=== PATIENT | female | born 1955 | race Caucasian/White ===

== ENCOUNTER 2020-02-16 18:19 | Emergency (ER) | payer MEDICARE, BC ==
[~2020-02-16] VITALS: Ht 167.6 cm; Wt 69.5 kg
--- NOTE | 2020-02-16 19:14 | PHYS DOC ---
Past History Past Medical History: Arthritis, Diabetes, Hypertension (ANNA HICKS APRN) Past Surgical History: , Knee Replacement, Other Additional Past Surgical Histo: right shoulder. rigth foot. thyroid (ANNA HICKS APRN) Alcohol Use: None (ANNA HICKS APRN) Adult General Chief Complaint Chief Complaint: SKIN PROBLEM HPI HPI Patient is a 59-year-old female patient presents with bilateral leg swelling starting last night. Patient reports she normally does not get any swelling in her legs, however since last night she has noticed some swelling to her bilateral legs. States she has not really had this in the past, states last night she put her legs up and they seem to have some improved swelling. 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 Patient denies any worsening dyspnea, denies any cough. Denies any weight change. She does report the swelling got so tight in her lower extremities that eventually caused a split in the skin of her right ankle. States she does have a history of hypertension and diabetes, reports her diabetes is well managed with her Metformin. Denies any change in her urination, denies any back pain. Also reports she notes a little bit of a rash to her lower extremities today. States she has not been taking any medications for the swelling or for the rash other than taking a Benadryl last night which did not seem to improve her rash (ANNA HICKS APRN) Review of Systems Review of Systems Constitutional: Denies fever or chills [] Eyes: Denies change in visual acuity, redness, or eye pain [] HENT: Denies nasal congestion or sore throat [] Respiratory: Denies cough or shortness of breath [] Cardiovascular: No additional information not addressed in HPI [] GI: Denies abdominal pain, nausea, vomiting, bloody stools or diarrhea [] : Denies dysuria or hematuria [] Musculoskeletal: Denies back pain or joint pain does report increased swelling to her bilateral lower legs [] Integument: Reports rash in her ankles, reports skin swelling to left posterior heel that has split upon last night due to the swelling in her feet [] Neurologic: Denies headache, focal weakness or sensory changes [] Endocrine: Denies polyuria or polydipsia [] All other systems were reviewed and found to be within normal limits, except as documented in this note. (ANNA HICKS APRN) Allergies Allergies Allergies Coded Allergies Type Severity Reaction Last Updated Verified iodine Allergy Unknown 02/16/20 Yes latex Allergy Unknown 02/16/20 Yes lisinopril Allergy Unknown 02/16/20 Yes (ANNA HICKS APRN) Physical Exam Physical Exam Constitutional: Well developed, well nourished, no acute distress, non-toxic appearance. [] HENT: Normocephalic, atraumatic, bilateral external ears normal, oropharynx moist, no oral exudates, nose normal. [] Eyes: PERRLA, EOMI, conjunctiva normal, no discharge. [] Neck: Normal range of motion, no tenderness, supple, no stridor. [] Cardiovascular:Heart rate regular rhythm, no murmur [] Lungs & Thorax: Bilateral breath sounds clear to auscultation [] Abdomen: Bowel sounds normal, soft, no tenderness, no masses, no pulsatile masses. [] Skin: Warm, dry, no erythema, widespread distal rash to distal tib-fib bilaterally, with minimal erythema, no vesicles, no pustules, stopping at sock line. [] Back: No tenderness, no CVA tenderness. [] Extremities: No tenderness, no cyanosis, no clubbing, ROM intact, mild edema noted to mid calf distally, with 1+ pitting edema to right ankle, moderate swelling to bilateral feet. Noted surgical scars to bilateral knees, reportedly replaced September/ May 2019. [] Neurologic: Alert and oriented X 3, normal motor function, normal sensory function, no focal deficits noted. [] Psychologic: Affect normal, judgement normal, mood normal. [] (ANNA HICKS APRN) Current Patient Data Vital Signs Vital Signs Date Time Temp Pulse Resp B/P (MAP) Pulse Ox O2 Delivery O2 Flow Rate FiO2 02/16/20 18:44 97.8 84 16 166/104 (124) 98 Room Air (ANNA HICKS APRN) EKG EKG normal sinus rhythm with no ST changes. per Dr Patrick @2023[] (ANNA HICKS APRN) Radiology/Procedures Radiology/Procedures []PROCEDURE: CHEST AP ONLY EXAM: CHEST AP ONLY INDICATION: Reason: edema / Spl. Instructions: / History: . TECHNIQUE: Single view COMPARISON: None FINDINGS: The heart size is normal. The great vessels appear unremarkable. There is no hilar or mediastinal mass. The lungs are clear. There is no pleural effusion or pneumothorax. There are no significant osseous abnormalities. Right shoulder arthroplasty is incidentally noted. IMPRESSION: No active cardiopulmonary disease. Electronically signed by: Reymundo Ryan MD (02/16/2020 8:11 PM) [facility] [place] DICTATED AND SIGNED BY: REYMUNDO RYAN MD DATE: 02/16/202010 (ANNA HICKS APRN) Heart Score HEART Score for Chest Pain: HEART Score for Chest Pain Response (Comments) Value History Slighlty/Non-Suspicious 0 ECG Normal 0 Age < 45 0 Risk Factors 1 or 2 Risk Factors 1 Troponin < Normal Limit 0 Total 1 Risk Factors: Risk Factors: DM, Current or recent (<one month) smoker, HTN, HLP, family history of CAD, obesity. Risk Scores: Risk Factors: DM, Current or recent (<one month) smoker, HTN, HLP, family history of CAD, obesity. (ANNA HICKS APRN) Course & Med Decision Making Course & Med Decision Making Pertinent Labs and Imaging studies reviewed. (See chart for details) [] Discussed findings with patient, with minimally elevated BNP, but no additional findings. Discussed use of compression stockings, discussed use of short course of diuretics. Patient agreed with this plan. Discussed follow-up with patient with consideration for cardiology consult for echo as needed with primary care. Patient agreed with this plan with no further questions or concerns (ANNA HICKS APRN) Dragon Disclaimer Dragon Disclaimer This electronic medical record was generated, in whole or in part, using a voice recognition dictation system. (ANNA HICKS APRN) Departure Departure: Impression: Primary Impression: Edema Additional Impression: Contact dermatitis Disposition: 01 DC HOME SELF CARE/HOMELESS Condition: GOOD Referrals: TROY TOM MD (PCP) Patient Instructions: Contact Dermatitis, Peripheral Edema Additional Instructions: As we discussed, you may consider an khpa-aeg-vfhnymy steroid cream for your legs where the rash is. You should take the water pills once a day for the next couple days to help reduce the swelling. Remember to keep your legs elevated as much as possible. Follow-up with your primary care provider in the next week or two to reevaluate your swelling. Scripts Furosemide (FUROSEMIDE) 20 Mg Tablet 1 TAB PO DAILY for swelling, #4 TAB 1 Refill Prov: ANNA HICKS APRN 02/16/20 Attending Signature Attending Signature I have reviewed the PA/WINDOWS SYSTEMS ENGINEER's note and plan of care. I was available for consultation as needed during the patient's visit in the emergency department. I agree with the clinical impression, plan, and disposition. (DONTAE PATRICK DO) Problem Qualifiers Primary Impression: Edema Edema type: localized Qualified Codes: R60.0 - Localized edema Additional Impression: Contact dermatitis Contact dermatitis type: irritant Contact dermatitis trigger: unspecified trigger Qualified Codes: L24.9 - Irritant contact dermatitis, unspecified cause ANNA HICKS APRN Feb 16, 2020 19:14 DONTAE PATRICK DO Feb 16, 2020 22:04
[2020-02-16 19:41] LABS: BASO # 0.1 x10^3/uL (0.0-0.2); BASO % 1 % (0-3); EOS # 0.1 x10^3/uL (0.0-0.7); EOS % 2 % (0-3); HEMATOCRIT 33.7 % (36.0-47.0); HEMOGLOBIN 10.4 g/dL (12.0-15.5); LYMPH # 2.3 x10^3/uL (1.0-4.8); LYMPH % 33 % (24-48); MEAN CORPUSCULAR HEMOGLOBIN 25 pg (25-35); MEAN CORPUSCULAR HGB CONC 31 g/dL (31-37); MEAN CORPUSCULAR VOLUME 81 fL (79-100); MONO # 0.6 x10^3/uL (0.0-1.1); MONO % 8 % (0-9); NEUT # 4.1 x10^3uL (1.8-7.7); NEUT % 57 % (31-73); PLATELET COUNT 386 x10^3/uL (140-400); RED BLOOD COUNT 4.15 x10^6/uL (3.50-5.40); RED CELL DISTRIBUTION WIDTH 17.9 % (11.5-14.5); WHITE BLOOD COUNT 7.2 x10^3/uL (4.0-11.0)
[2020-02-16 19:44] LABS: CALCIUM 9.4 mg/dL (8.5-10.1); GFR 55.6; POTASSIUM 3.9 mmol/L (3.5-5.1)
[2020-02-16 19:56] LABS: ALBUMIN 3.5 g/dL (3.4-5.0); TOTAL BILIRUBIN 0.8 mg/dL (0.2-1.0); TOTAL PROTEIN 7.1 g/dL (6.4-8.2)
--- NOTE | 2020-02-16 20:14 | RAD ---
EXAM: CHEST AP ONLY INDICATION: Reason: edema / Spl. Instructions: / History: . TECHNIQUE: Single view COMPARISON: None FINDINGS: The heart size is normal. The great vessels appear unremarkable. There is no hilar or mediastinal mass. The lungs are clear. There is no pleural effusion or pneumothorax. There are no significant osseous abnormalities. Right shoulder arthroplasty is incidentally noted. IMPRESSION: No active cardiopulmonary disease. Electronically signed by: Dwayne Ryan MD (02/16/2020 8:11 PM) [facility] [place]
[2020-02-16 20:29] VITALS: BP 165/87
[2020-02-16] MEDS ORDERED: FURO20TA3 PO (20:38)
[2020-02-16 20:45] LABS: BILIRUBIN,URINE NEG (NEG); CLARITY,URINE CLEAR; COLOR,URINE YELLOW; GLUCOSE,URINE NEG (NEG)
[2020-02-16 20:46] LABS: BACTERIA,URINE 0 /HPF (0-FEW); NITRITE,URINE NEG (NEG); RBC,URINE 0 /HPF (0-2); SQUAMOUS EPITHELIAL CELL,UR FEW /LPF; UROBILINOGEN,URINE 0.2 mg/dL (0.2 mg/dL)
--- NOTE | 2020-02-17 18:24 | EKG ---
[address] [address] Test Date: 2020-02-16 Test Time: 20:08:45 Pat Name: YVONNE SHOEMAKER Department: Room: Gender: F Purchasing Internship: ENEDINA : 1955 Requested By: ANNA HICKS Order Number: [id number] Reading MD: Prashant Shannon Measurements Intervals [place] Rate: 76 P: 32 [place]: 160 QRS: -2 QRSD: 70 T: 9 QT: 372 QTc: 418 Interpretive Statements SINUS RHYTHM LEFTWARD AXIS Electronically Signed On 02-17-2020 18:24:10 DEHYDROGENATION OPERATOR by Prashant Shannon
== END 2020-02-16 20:40 | disposition home or self-care (01) ==
LOC: ER 18:19
DX: L25.9 Unspecified contact dermatitis, unspecified cause (principal); R60.0 Localized edema; R21 Rash and other nonspecific skin eruption; M19.90 Unspecified osteoarthritis, unspecified site; E11.9 Type 2 diabetes mellitus without complications; I10 Essential (primary) hypertension; Z98.890 Other specified postprocedural states; Z91.040 Latex allergy status; Z91.041 Radiographic dye allergy status; Z88.8 Allergy status to other drugs, medicaments and biological substances
CPT/HCPCS: 36415; 71045; 80053; 81001; 83880; 84484; 85025; 87086; 93005; 99285

== ENCOUNTER 2021-01-03 16:09 | Emergency (ER) | payer MEDICARE, BC ==
[~2021-01-03] VITALS: Ht 167.6 cm; Wt 69.5 kg
[~2021-01-03 16:09] MED LIST: FURO20TA3 PO
--- NOTE | 2021-01-03 16:39 | PHYS DOC ---
Past History Past Medical History: Arthritis, Diabetes, Hypertension (LORI OLSON APRN) Past Surgical History: , Knee Replacement, Other Additional Past Surgical Histo: right shoulder. rigth foot. thyroid (LORI OLSON APRN) Alcohol Use: None (LORI OLSON APRN) General Adult EDM: Chief Complaint: FLANK PAIN HPI: HPI: Patient is a 65-year-old female who presents with left lower abdominal pain and flank pain that started an hour ago. Patient also reports nausea and vomiting. Afebrile. Denies frequency or dysuria denies chest pain or shortness of breath. Denies taking anything for pain. History of arthritis, hypertension, diabetes. (LORI OLSON APRN) Review of Systems: Review of Systems: ROS At least 10 ROS systems have been reviewed and are negative except as documented in the HPI. General: Negative except as outlined in HPI above. Skin: Negative except as outlined in HPI above. HEENT: Negative except as outlined in HPI above. Neck: Negative except as outlined in HPI above. Respiratory: Negative except as outlined in HPI above.. Cardiovascular: Negative except as outlined in HPI above. Abdomen: Negative except as outlined in HPI above. : Negative except as outlined in HPI above. Back/MSK: Negative except as outlined in HPI above. Neuro: Negative except as outlined in HPI above. Psych: Negative except as outlined in HPI above. (LORI OLSON APRN) Allergies: Allergies: Allergies Coded Allergies Type Severity Reaction Last Updated Verified iodine Allergy Unknown 02/16/20 Yes latex Allergy Unknown 02/16/20 Yes lisinopril Allergy Unknown 02/16/20 Yes (LORI OLSON APRN) Physical Exam: PE: Constitutional: Well developed, well nourished, no acute distress, non-toxic appearance. [] HENT: Normocephalic, atraumatic, bilateral external ears normal, oropharynx moist, no oral exudates, nose normal. [] Eyes: PERRLA, EOMI, conjunctiva normal, no discharge. [] Neck: Normal range of motion, no tenderness, supple, no stridor. [] Cardiovascular:Heart rate regular rhythm, no murmur [] Lungs & Thorax: Bilateral breath sounds clear to auscultation [] Abdomen: Bowel sounds normal, soft, left lower tenderness Skin: Warm, dry, no erythema, no rash. [] Back: No tenderness, left CVA tenderness. [] Extremities: No tenderness, no cyanosis, no clubbing, ROM intact, no edema. [] Neurologic: Alert and oriented X 3, normal motor function, normal sensory function, no focal deficits noted. [] Psychologic: Affect normal, judgement normal, mood normal. [] (LORI OLSON APRN) EKG: EKG: [] (LORI OLSON APRN) Radiology/Procedures: Radiology/Procedures: []CT ABDOMEN+PELVIS WO History: Left lower side abdominal pain, left flank pain. Comparison: None. Technique: CT of the abdomen and pelvis without contrast. Findings: There is a 6 mm solid pulmonary nodule right lower lobe (axial 11) and partially imaged at least 4 mm nodule in the right lower lobe (axial image 1). Visualized heart is unremarkable. No pleural or pericardial effusion. The liver, gallbladder, pancreas, spleen, and adrenal glands are unremarkable. There is bilateral nephrolithiasis. Right lower pole stone measures 4 mm. No right hydronephrosis. Mild left hydronephrosis with 5 mm proximal left ureteral stone. Multiple additional small left nephroliths. The bladder is decompressed and unremarkable. Normal uterus and adnexa. Small hiatal hernia. Unremarkable stomach and small bowel. There is moderate colonic diverticulosis without wall thickening or pericolonic stranding to suggest a vasculitis. Abdominal vasculature is unremarkable. No adenopathy. Soft tissues are unremarkable. Advanced degenerative changes of the lumbar spine with severe degenerative endplate changes at T12-L1 and mild anterolisthesis at L4-L5. Multilevel advanced facet hypertrophy. Impression: 1. Left proximal ureteral stone measuring 5 mm causing mild left hydronephrosis. 2. Right lower lobe pulmonary nodules measuring up to 6 mm however the superior nodule is incompletely imaged. Recommend follow-up noncontrast CT chest 3 months to evaluate for stability and extent. 3. Bilateral nephrolithiasis. 4. Moderate colonic diverticulosis. 5. 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 ------ Exposure: One or more of the following individualized dose reduction techniques were utilized for this examination: 1. Automated exposure control 2. Adjustment of the mA and/or kV according to patient size 3. Use of iterative reconstruction technique. Electronically signed by: Iggy Palomares MD (01/03/2021 5:14 PM) [id number] (LORI OLSON APRN) Heart Score: C/O Chest Pain: No Risk Factors: Risk Factors: DM, Current or recent (<one month) smoker, HTN, HLP, family history of CAD, obesity. Risk Scores: Score 0 - 3: 2.5% MACE over next 6 weeks - Discharge Home Score 4 - 6: 20.3% MACE over next 6 weeks - Admit for Clinical Observation Score 7 - 10: 72.7% MACE over next 6 weeks - Early Invasive Strategies (LORI OLSON APRN) Course & Med Decision Making: Course & Med Decision Making Pertinent Labs and Imaging studies reviewed. (See chart for details) [] 65-year-old female presents with left lower abdominal and flank pain that started an hour ago. Patient also reports nausea and vomiting. Patient is afebrile. Denies urinary symptoms. Patient given Toradol and Zofran for pain and nausea and normal saline bolus. Patient reports that pain has improved. CT abdomen showed 5 mm proximal left ureteral stone. Discussed results with patient. Patient reports pain is returning. Patient given 4 mg morphine and 4 mg Zofran. Patient also given Flomax. Sending patient home with hydrocodone, Flomax, Zofran to help with symptoms. Instructed patient to drink plenty of fluids. Patient given urology contact information to call and make a follow-up appointment. Patient also given a strainer to use at home. (LORI OLSON APRN) Course & Med Decision Making Did not see or evaluate patient. Did not discuss patient with SUBSTANCE ABUSE CLINICIAN. Agree with SUBSTANCE ABUSE CLINICIAN's work-up and disposition per note. (PINO PANCHAL MD) Dragon Disclaimer: Dragon Disclaimer: This electronic medical record was generated, in whole or in part, using a voice recognition dictation system. (LORI OLSON APRN) Departure Departure: Impression: Primary Impression: Left ureteral stone Additional Impression: Nausea & vomiting Qualified Codes: R11.2 - Nausea with vomiting, unspecified Disposition: HOME / SELF CARE / HOMELESS Condition: STABLE Referrals: TROY TOM MD (PCP) DALTON OAKLEY MD Patient Instructions: Diet for Kidney Stones, Kidney Stones, [id number] Additional Instructions: Given pain medication along with nausea medication help with symptoms. You were seen emergency room for abdominal pain and left-sided flank pain. CT of your abdomen showed a 5 mm kidney stone. Sending you home with Flomax, hydrocodone and Zofran for pain and nausea. I am also giving you a strainer that I like you to use when you go to the restroom to try and catch the stone. I am also giving you a phone number for you to follow-up with your urology. Please call and schedule a follow-up appointment. Turn to emergency room for worsening symptoms or concerns. EMERGENCY DEPARTMENT GENERAL DISCHARGE INSTRUCTIONS Thank you for coming to [facility] (ED) today and trusting us with you care. We trust that you had a positivie experience in our Emergency Department. If you wish to speak to the department management, you may call the director at [phone]. YOUR FOLLOW UP INSTRUCTIONS ARE FOLLOWS: 1. Do you have a private Doctor? If you do not have a private doctor, please ask for a resource list of physicians or clinics that may be able to assist you with follow up care. 2. The Emergency Physician has interpreted your x-rays. The X-Ray specialist will also review them. If there is a change in the findings, you will be notified in 48 hours when at all possible. 3. A lab test or culture has been done, your results will be reviewed and you will be notified if you need a change in treatment. ADDITIONAL INSTRUCTIONS AND INFORMATION: 1. Your care today has been supervised by a physician who is specially trained in emergency care. Many problems require more than one evaluation for a complete diagnosis and treatment. We recommend that you schedule your follow up appointment as recommended to ensure complete treatment of you illness or injury. If you are unable to obtain follow up care and continue to have a problem, or if your condition worsens, we recommend that you return to the ED. 2. We are not able to safely determine your condition over the phone nor are we able to give sound medical advice over the phone. For these safety reasons, if you call for medical advice we will ask you to come to the ED for further evaluation. 3. If you have any questions regarding these discharge instructions please call the ED at [phone]. SAFETY INFORMATION: In the interest of safety, wellness, and injury prevention; we encourage you to wear your sealbelt, if you smoke; quite smoking, and we encourage family to use a protective helmet for bicycling and other sporting events that present an increased risk for head injury. IF YOUR SYMPTOMS WORSEN OR NEW SYMPTOMS DEVELOP, OR YOU HAVE CONCERNS ABOUT YOUR CONDITION; OR IF YOUR CONDITION WORSENS WHILE YOU ARE WAITING FOR YOUR FOLLOW UP APPOINTMENT; EITHER CONTACT YOUR PRIMARY CARE DOCTOR, THE PHYSICIAN WHOSE NAME AND NUMBER YOU WERE GIVEN, OR RETURN TO THE ED IMMEDIATELY. Scripts Oxycodone Hcl/Acetaminophen (PERCOCET 10-325 MG TABLET ) 1 Each Tablet 1 TAB PO PRN Q4-6HRS PRN for kidney stone MDD 6 Tablet(s) for 5 Days, #20 TAB 0 Refills Prov: LORI OLSON APRN 01/03/21 Ondansetron Hcl (ZOFRAN) 4 Mg Tablet 4 MG PO TID PRN PRN for NAUSEA, #9 TAB Prov: LORI OLSON APRN 01/03/21 Tamsulosin Hcl (FLOMAX) 0.4 Mg Cap.er.24h 1 CAP PO DAILY for kidney stone for 14 Days, #14 CAP 0 Refills Prov: LORI OLSON APRN 01/03/21 LORI OLSON APRN Jan 03, 2021 16:38 PINO PANCHAL MD Jan 03, 2021 22:24
[2021-01-03] MEDS ORDERED: KETOROLAC 15 MG/ML VIAL. IVP ONE (16:45)
[2021-01-03] MEDS ORDERED: ONDANSETRON PF 4 MG/2 ML VIAL. IVP ONE ×3 (16:45→20:45)
[2021-01-03 17:00] LABS: BACTERIA,URINE 0 /HPF (0-FEW); BILIRUBIN,URINE NEG (NEG); CLARITY,URINE CLOUDY; COLOR,URINE AMBER; GLUCOSE,URINE 100 mg/dL (NEG); NITRITE,URINE NEG (NEG); RBC,URINE 20-40 /HPF (0-2); SQUAMOUS EPITHELIAL CELL,UR OCC /LPF; UROBILINOGEN,URINE 0.2 mg/dL (0.2 mg/dL)
[2021-01-03 17:14] LABS: BASO # 0.1 x10^3/uL (0.0-0.2); BASO % 1 % (0-3); EOS # 0.1 x10^3/uL (0.0-0.7); EOS % 1 % (0-3); HEMATOCRIT 44.8 % (36.0-47.0); HEMOGLOBIN 14.6 g/dL (12.0-15.5); LYMPH % 31 % (24-48); MEAN CORPUSCULAR HEMOGLOBIN 30 pg (25-35); MEAN CORPUSCULAR HGB CONC 33 g/dL (31-37); MEAN CORPUSCULAR VOLUME 93 fL (79-100); MONO # 0.8 x10^3/uL (0.0-1.1); MONO % 8 % (0-9); NEUT # 5.8 x10^3uL (1.8-7.7); NEUT % 59 % (31-73); PLATELET COUNT 334 x10^3/uL (140-400); RED BLOOD COUNT 4.81 x10^6/uL (3.50-5.40); RED CELL DISTRIBUTION WIDTH 16.8 % (11.5-14.5); WHITE BLOOD COUNT 9.8 x10^3/uL (4.0-11.0)
[2021-01-03] MEDS ORDERED: IV NORMAL SALINE 1,000ML 1,000 ML IV ONE ×2 (17:15→18:30)
[2021-01-03] MEDS ORDERED: MORPHINE SULFATE 4 MG/ML DISP.SYRIN. IV ONE ×2 (17:15→19:15)
--- NOTE | 2021-01-03 17:16 | RAD ---
CT ABDOMEN+PELVIS WO History: Left lower side abdominal pain, left flank pain. Comparison: None. Technique: CT of the abdomen and pelvis without contrast. Findings: There is a 6 mm solid pulmonary nodule right lower lobe (axial 11) and partially imaged at least 4 mm nodule in the right lower lobe (axial image 1). Visualized heart is unremarkable. No pleural or heavenly cardial effusion. The liver, gallbladder, pancreas, spleen, and adrenal glands are unremarkable. There is bilateral nep hrolithiasis. Right lower pole stone measures 4 mm. No right hydronephrosis. Mild left hydronephrosis with 5 mm proximal left ureteral stone. Multiple additional small left nephroliths. The bladder is d ecompressed and unremarkable. Normal uterus and adnexa. Small hiatal hernia. Unremarkable stomach and small bowel. There is moderate colonic diverticulosis w ithout wall thickening or pericolonic stranding to suggest a vasculitis. Abdominal vasculature is unr emarkable. No adenopathy. Soft tissues are unremarkable. Advanced degenerative changes of the lumbar spine with severe degenerative endplate changes at T12-L1 and mild anterolisthesis at L4-L5. Multilev el advanced facet hypertrophy. Impression: 1. Left proximal ureteral stone measuring 5 mm causing mild left hydronephrosis. 2. Right lower lobe pulmonary nodules measuring up to 6 mm however the superior nodule is incomplete ly imaged. Recommend follow-up noncontrast CT chest 3 months to evaluate for stability and extent. 3. Bilateral nephrolithiasis. 4. Moderate colonic diverticulosis. 5. 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 ------ Exposure: One or more of the following individualized dose reduction techniques were utilized for thi s examination: 1. Automated exposure control 2. Adjustment of the mA and/or kV according to patient size 3. Use of iterative reconstruction technique. Electronically signed by: Iggy Palomares MD (01/03/2021 5:14 PM) [id number]
[2021-01-03] MEDS ORDERED: TAMSULOSIN 0.4 MG CAP.ER.24H. PO ONE (18:30)
[2021-01-03 18:50] LABS: CALCIUM 9.4 mg/dL (8.5-10.1); CREATININE 0.9 mg/dL (0.6-1.0); GFR 62.6; POTASSIUM 3.9 mmol/L (3.5-5.1)
[2021-01-03 18:57] LABS: ALBUMIN 3.9 g/dL (3.4-5.0); ALBUMIN/GLOBULIN RATIO 1.1 (1.0-1.7); TOTAL BILIRUBIN 1.1 mg/dL (0.2-1.0); TOTAL PROTEIN 7.4 g/dL (6.4-8.2)
[2021-01-03] MEDS ORDERED: HYDR-2155 PO (19:07)
[2021-01-03] MEDS ORDERED: TAMS0.4C97 PO (19:07)
[2021-01-03] MEDS ORDERED: ONDA4TAB7 PO (19:07)
[2021-01-03] MEDS ORDERED: OXYC1TAB22 PO (19:41)
[2021-01-03 20:41] VITALS: BP 143/84
== END 2021-01-03 20:52 | disposition home or self-care (01) ==
LOC: ER 16:29
DX: N20.1 Calculus of ureter (principal); E11.9 Type 2 diabetes mellitus without complications; I10 Essential (primary) hypertension; Z91.040 Latex allergy status; Z88.8 Allergy status to other drugs, medicaments and biological substances
CPT/HCPCS: 36415; 74176; 80053; 81001; 85025; 96361; 96374; 96375; 96376; 99285; J1885; J2270; J2405; J7030